=== PATIENT | male | born 1930 | race Caucasian/White ===

== ENCOUNTER 2017-08-24 13:00 | Outpatient (CLI) | payer MEDICARE, BC | END 2017-08-24 13:01 | disposition home or self-care (01) | LOC: BICRAD 13:00 | PROVIDERS: ATTEND Specialist | DX: J32.9 Chronic sinusitis, unspecified (principal); R06.00 Dyspnea, unspecified | CPT/HCPCS: 70220; 71046 ==

== ENCOUNTER → 2017-08-31 | Day surgery (SDC) | payer MEDICARE, BC ==
--- NOTE | 2017-09-05 13:10 | PFT ---
PATIENT HISTORY: HEIGHT: 71.5 IN WEIGHT: 277 SMOKER: NO HOW LON YRS PACKS PER DAY PRODUCTIVE COUGH: NO LUNG DISEASE: PHYSICIAN INTERPRETATION FINAL REPORT: Construction Driver comments patient had a good effort and cooperation FVC 3.63 (86%), FEV1 2.47 (95%), FEV1/FVC 0.68. TLC 10.00 liters (140%), RV 6.61 (228%). FEV1 and FVC fall within normal limits. The ratio is consistent with mild obstructive airflow limitation. There is a significant improvement in the FVC ( 13%, 420 mL), and the FEV1 (15%, 330 mL) following administration of a bronchodilator. Total lung capacity and residual volume are elevated. IMPRESSION: Overall, these pulmonary function studies are consistent with minimal obstructive lung disease with significant improvement following bronchodilator, airtrapping, and hyperinflation. Clinical correlation should be considered. Construction Driver: ANNELIESE Lens Molder: ANNELIESE REYES
== END ==
LOC: BICCT 13:52 → CP 13:53
PROVIDERS: ATTEND Specialist
DX: J32.9 Chronic sinusitis, unspecified (principal); Z87.891 Personal history of nicotine dependence
CPT/HCPCS: 94060; 94727

== ENCOUNTER 2017-09-13 08:57 | Day surgery (SDC) | payer MEDICARE, BC ==
[2017-09-12 15:11] VITALS: BMI 37.4
[2017-09-13 11:01] LABS: Hemoglobin 13.8 g/dL (14.0-18.0)
[2017-09-13] MEDS ORDERED: Oxymetazoline HCl 0.05% ( 15 ML ) ONE ×2 (11:08→11:35)
[2017-09-13 11:23] LABS: Anion Gap 11 mmol/L (10-20); BUN (Urea Nitrogen) 16 mg/dL (8.4-25.7); Calc. Creatinine Clearance 125 mL/min (70-130); Calcium 9.1 mg/dL (7.8-10.44); Carbon Dioxide 28 mmol/L (23-31); Chloride 104 mmol/L (98-107); Estimated GFR-MDRD Greater than 90; Glucose 103 mg/dL (83-110); Potassium 4.2 mmol/L (3.5-5.1); Sodium 139 mmol/L (136-145)
[2017-09-13] MEDS ORDERED: Bacitracin Zinc Ointment 30 gm TUBE ONE (11:35)
[2017-09-13] MEDS ORDERED: Lidocaine 1% w/Epinephrine 1:200K 30 ML VIAL ONE (11:35)
[2017-09-13] MEDS ORDERED: Ondansetron HCl/PF 4 MG/2 ML Vial ONE ×2 (11:37→13:25)
[2017-09-13] MEDS ORDERED: Fentanyl 100 MCG/2 ML VIAL ONE (11:37)
--- NOTE | 2017-09-13 11:41 | EKG ---
Test Reason : PREOP Blood Pressure : / mmHG Vent. Rate : 056 BPM Atrial Rate : 056 BPM P-R Int : 172 ms QRS Dur : 098 ms QT Int : 458 ms P-R-T Axes : 027 032 039 degrees QTc Int : 441 ms Sinus bradycardia with sinus arrhythmia Otherwise normal ECG Confirmed by DR. Jerica GOMEZ ([id number]) on 09/13/2017 11:40:57 AM Referred By: JEANIE Confirmed By:DR. Jerica GOMEZ
[2017-09-13] MEDS ORDERED: PROPOFOL 200 MG/20 ML VIAL ONE (13:25)
[2017-09-13] MEDS ORDERED: Lidocaine 1% PF 5 ML VIAL ONE (13:25)
[2017-09-13] MEDS ORDERED: Succinylcholine Chloride 20 MG/ML 10 ml SYRINGE FS ONE (13:25)
[2017-09-13] MEDS ORDERED: Dexamethasone 20 MG/5 ML VIAL ONE (13:25)
--- NOTE | 2017-09-14 00:04 | OP ---
DATE OF PROCEDURE: 09/13/2017 PREOPERATIVE DIAGNOSES: 1. Chronic rhinosinusitis. 2. Allergic fungal sinusitis. 3. Nasal polyposis. 4. Bilateral inferior turbinate hypertrophy. POSTOPERATIVE DIAGNOSES: 1. Chronic rhinosinusitis. 2. Allergic fungal sinusitis. 3. Nasal polyposis. 4. Bilateral inferior turbinate hypertrophy. PROCEDURES: 1. Bilateral endoscopic sinus surgery, total ethmoidectomies. 2. Bilateral endoscopic sinus surgery, maxillary antrostomies. 3. Bilateral endoscopic sinus surgery, frontal sinusotomy. 4. Bilateral endoscopic sinus surgery, sphenoidotomies. 5. Bilateral inferior turbinate submucosal resection. SURGEON: Naveed Vera MD ESTIMATED BLOOD LOSS: 50 mL. COMPLICATIONS: None. ANESTHESIA: GETA. DESCRIPTION OF PROCEDURE: The patient was taken to the operating room, placed supine on the table. General endotracheal anesthesia was obtained by the Anesthesia staff. Tube was secured in the left l ower lip. The patient was placed in the beach-chair position. Following this, Afrin pledgets were p laced in the nasal cavity and the patient was prepped and draped for standard nasal procedure. Follo wing this, 0-degree scope was advanced in the nasal cavity. There was a leftward septal deviation an d otherwise nasal polyps were prominent on the right side of the nasal cavity, much greater than the left. Injection of 1% lidocaine 1:100,000 epinephrine was made into the middle turbinates, inferior turbinates, and lateral nasal wall bilaterally. Following this, middle turbinates were gently medial ized with a [place] elevator on the right side. Large amounts of scarring and nasal polyps were encoun tered and these were removed using the straight microdebrider. The uncinate process was identified b ilaterally, was anteriorly fractured using the ball-ended probe, and then was removed using the micro debrider. On the right side, the entire maxillary sinus ostia was completely opacified and tissue wa s removed using the microdebrider. Maxillary sinus was then debrided on this right side of copious a juju of allergic fungal debris and nasal polyps using the curved microdebrider and curved suction. On the left side, the natural maxillary ostia was gently widened using the microdebrider. Following this, the ethmoidal bulla was identified and was punctured on its medial and inferior aspect and it was removed. The ground lamella was identified and was then punctured into the posterior ethmoidal c ells working from posterior to anterior, and the ethmoidal cells were opened in a mucosal-sparing riya hnique. The sphenoid sinus ostia was approached through the previous ethmoidectomies where the sphen oid ostia were widened medially and inferiorly using the microdebrider. Following this, a curved [place] rodebrider and the 45-degree scope were used to visualize the frontal recess cells, which were furthe r opened and removed identifying the frontal sinus ostia bilaterally. The frontal sinuses were opene d bilaterally using the microdebrider. Following this, the inferior turbinates were punctured on the anterior and inferior aspects. Submucosal resection was performed of the anterior and inferior port ions of the inferior turbinates bilaterally. The patient tolerated the procedure well.
== END 2017-09-13 15:18 | disposition home or self-care (01) ==
LOC: SDC 08:57
PROVIDERS: ATTEND Otolaryngology Plastic Surgery within the Head & Neck
PROC: 099R8ZZ Drainage of Left Maxillary Sinus, Via Natural or Artificial Opening Endoscopic (ICD-10-PCS; principal; 2017-09-13)
PROC: 099Q8ZZ Drainage of Right Maxillary Sinus, Via Natural or Artificial Opening Endoscopic (ICD-10-PCS; 2017-09-13)
PROC: 09TL8ZZ Resection of Nasal Turbinate, Via Natural or Artificial Opening Endoscopic (ICD-10-PCS; 2017-09-13)
PROC: 09TV8ZZ Resection of Left Ethmoid Sinus, Via Natural or Artificial Opening Endoscopic (ICD-10-PCS; 2017-09-13)
PROC: 09TU8ZZ Resection of Right Ethmoid Sinus, Via Natural or Artificial Opening Endoscopic (ICD-10-PCS; 2017-09-13)
PROC: 09BT8ZZ Excision of Left Frontal Sinus, Via Natural or Artificial Opening Endoscopic (ICD-10-PCS; 2017-09-13)
PROC: 09BS8ZZ Excision of Right Frontal Sinus, Via Natural or Artificial Opening Endoscopic (ICD-10-PCS; 2017-09-13)
PROC: 09CX8ZZ Extirpation of Matter from Left Sphenoid Sinus, Via Natural or Artificial Opening Endoscopic (ICD-10-PCS; 2017-09-13)
PROC: 09CW8ZZ Extirpation of Matter from Right Sphenoid Sinus, Via Natural or Artificial Opening Endoscopic (ICD-10-PCS; 2017-09-13)
DX: J32.9 Chronic sinusitis, unspecified (principal); J33.9 Nasal polyp, unspecified; J34.3 Hypertrophy of nasal turbinates; M10.9 Gout, unspecified; K21.9 Gastro-esophageal reflux disease without esophagitis; I10 Essential (primary) hypertension; E78.00 Pure hypercholesterolemia, unspecified; Z79.82 Long term (current) use of aspirin; Z79.899 Other long term (current) drug therapy; Z88.6 Allergy status to analgesic agent; Z88.5 Allergy status to narcotic agent
CPT/HCPCS: 36415; 80048; 85014; 85018; 93005; 93010; J1100; J2001; J2405; J2704; J3010

== ENCOUNTER 2019-11-08 06:03 | Outpatient (CLI) | payer MEDICARE, BC, OTHER ==
[2019-11-08 12:35] LABS: #Basophils 0.1 thou/uL (0.0-0.2); #Eosinphils 0.1 thou/uL (0.0-0.7); #Lymphocytes 1.5 thou/uL (1.20-3.40); #Monocytes 0.7 thou/uL (0.11-0.59); #Neutrophils 4.1 thou/uL (1.40-6.50); %Basophils 0.9 % (0.0-1.0); %Eosinophils 1.6 % (0.0-10.0); %Lymphocytes 22.6 % (21.0-51.0); %Monocytes 10.8 % (0.0-10.0); %Neutrophils 64.1 % (42.0-75.0); Hemoglobin 14.9 g/dL (14.0-18.0); Mean Corpuscular HGB CONC 33.1 g/dL (32.0-36.0); Mean Corpuscular Hemoglobin 35.7 pg (27.0-31.0); Mean Platelet Volume 7.8 fL (7.4-10.4); Platelet Count 148 thou/uL (130-400); Platelet Morphology Comment Appears Adequate; RBC Distribution Width 12.3 % (11.5-14.5); RBC Morphology Normal; Red Blood Cell (RBC) Count 4.17 mill/uL (4.70-6.10); White Blood Cell (WBC) Count 6.4 thou/uL (4.8-10.8)
[2019-11-08 12:42] LABS: Anion Gap 14 mmol/L (10-20); BUN (Urea Nitrogen) 24 mg/dL (8.4-25.7); Calc. Creatinine Clearance 0 mL/min (70-130); Calcium 8.6 mg/dL (7.8-10.44); Carbon Dioxide 23 mmol/L (23-31); Chloride 105 mmol/L (98-107); Estimated GFR-MDRD 85; Glucose 98 mg/dL (83-110); Potassium 4.4 mmol/L (3.5-5.1); Sodium 138 mmol/L (136-145)
[2019-11-09 13:15] LABS: SARS-CoV-2 MS2 Positive; SARS-CoV-2 N Gene Negative; SARS-CoV-2 S Gene Negative; SARS-CoV-2 orf1ab Negative
== END 2019-11-08 06:04 | disposition home or self-care (01) ==
LOC: LABBT 06:03
PROVIDERS: ATTEND Orthopaedic Surgery
DX: Z01.818 Encounter for other preprocedural examination (principal); Z11.59 Encounter for screening for other viral diseases; G56.03 Carpal tunnel syndrome, bilateral upper limbs
CPT/HCPCS: 80048; 85025; 93005; U0003; 87635; 93010

== ENCOUNTER 2019-11-13 06:07 | Day surgery (SDC) | payer MEDICARE, BC ==
--- NOTE | 2019-11-12 09:30 | HP ---
HISTORY OF PRESENT ILLNESS: The patient is an 89-year-old male, retired orthopedic surgeon, who has a several month history of pain and tingling in both hands left greater than right without specific injury. The symptoms are worse with activities and will wake him at night. He has had no relief with rest, restriction of activities, splinting, and wrist injections. PAST MEDICAL HISTORY: The patient has history of arthritis, hypertension, gout, currently works as a woods. CURRENT MEDICATIONS: Include: 1. Allopurinol. 2. Low-dose aspirin. 3. Calcium. 4. Fish oil. 5. Hydrochlorothiazide. 6. Levothyroxine. 7. Metoprolol. 8. Multivitamins. 9. Niacin. 10. Omeprazole. 11. Simvastatin. 12. Terazosin. ALLERGIES: HE IS ALLERGIC TO IV VANCOMYCIN. FAMILY HISTORY: Otherwise, unremarkable. SOCIAL HISTORY: Otherwise, unremarkable. REVIEW OF SYSTEMS: Otherwise, unremarkable. PHYSICAL EXAMINATION: GENERAL: Reveals elderly healthy male. HEENT: Unremarkable. NECK: Supple. CHEST: Clear. HEART: Regular rate and rhythm. ABDOMEN: Soft, nontender. RECTAL: Deferred. GENITAL: Deferred. EXTREMITIES: Pertinent findings related to both wrists. There is some slight swelling. There is some slight thenar atrophy worse on the left. There is a . There is subjective numbness in median nerve distribution bilaterally, left greater than right. There are palpable distal pulses. There is no definite motor deficit. Electrodiagnostic studies performed by Dr. Nino reveal bilateral carpal tunnel syndrome, severe on the left and moderately severe on the right. IMPRESSION: Bilateral carpal tunnel syndrome, left greater than right. PLAN: Endoscopic possible open right carpal tunnel release. He will probably require similar procedure on the right once he has recovered from the left. The nature of the surgery, length of recovery, and potential complications such as infection, loss of motion, incomplete relief, neurovascular injury, recurrence, scar tissue formation, need for additional treatment, or repeat surgery have been discussed in detail. Job ID: [id number]
[2019-11-12 09:49] VITALS: BMI 34.0
[2019-11-13] MEDS ORDERED: Propofol 500 MG/50 ML VIAL ONE (06:38)
[2019-11-13] MEDS ORDERED: Fentanyl 100 MCG/2 ML VIAL ONE (06:38)
[2019-11-13] MEDS ORDERED: Midazolam HCl 2 mg/2 ml Vial ONE (06:38)
--- NOTE | 2019-11-13 09:18 | OP ---
DATE OF PROCEDURE: 11/13/2019 ANESTHESIA: General. PREOPERATIVE DIAGNOSIS: Bilateral carpal tunnel syndrome. POSTOPERATIVE DIAGNOSIS: Bilateral carpal tunnel syndrome PROCEDURE PERFORMED: Bilateral endoscopic carpal tunnel release. DESCRIPTION OF PROCEDURE: After satisfactory anesthesia was induced in supine position, the patient was prepped and draped in a routine manner. The left wrist was addressed first. The arm was elevated, exsanguinated with an Esmarch bandage, and the tourniquet was inflated to 250 mmHg. A 2 cm transverse incision was made in the proximal wrist flexion crease, carried to the subcutaneous tissues, and bleeding points were controlled with Bovie cautery. Using sharp and blunt dissection, a distally based flap at deep forearm fascia was developed and retracted distally. Palmaris longus tendon was retracted radially. Proximal edge of the deep forearm fascia was split under direct visualization with small scissors to make sure there was no proximal impingement of the median nerve. Synovial elevator was introduced beneath the transverse carpal ligament. The synovium cleaned from the under surface. Carpal tunnel dilators were inserted. The [employer]ee endoscopic carpal tunnel system was introduced beneath the transverse carpal ligament in line with the ring finger. The distal edge of the ligament was easily identified and then divided in a distal to proximal direction by pulling the trigger of the assembly, engaging the knife and withdrawing the scope proximally. This was done in several stages to make sure there was complete division of the transverse carpal ligament, which was documented with video printer. After withdrawing the scope, the carpal tunnel dilator could be inserted into the carpal tunnel with markedly improved passage in subcutaneous position of the instrument. The scope was reintroduced into the carpal tunnel. There was wide separation of the two levels of the transverse carpal ligament. The tourniquet was released after 5 minutes. There was no excessive bleeding when the scope was withdrawn. The wound was thoroughly irrigated and closed in a running subcuticular 3-0 nylon and a sterile dressing applied. Attention was then directed to the right wrist and an identical procedure was performed with a tourniquet time being 6 minutes on the right side. Velcro wrist splints were applied to both wrists. The patient was awakened and taken from the operating room in stable condition. There were no apparent intraoperative complications. The estimated blood loss was negligible. The patient will be discharged home in satisfactory condition, instructed on ice and elevation, and given written wound care instructions. He has tramadol at home for pain. He will be rechecked in my office in 10 to 14 days or sooner, if there are any problems prior to that time. Job ID: [id number]
== END 2019-11-13 10:01 | disposition home or self-care (01) ==
LOC: SDC 06:07
PROVIDERS: ATTEND Orthopaedic Surgery
PROC: 01N54ZZ Release Median Nerve, Percutaneous Endoscopic Approach (ICD-10-PCS; principal; 2019-11-13)
PROC: 01N54ZZ Release Median Nerve, Percutaneous Endoscopic Approach (ICD-10-PCS; 2019-11-13)
DX: G56.03 Carpal tunnel syndrome, bilateral upper limbs (principal); M17.0 Bilateral primary osteoarthritis of knee; I10 Essential (primary) hypertension; M10.9 Gout, unspecified; E78.00 Pure hypercholesterolemia, unspecified; E07.9 Disorder of thyroid, unspecified; K21.9 Gastro-esophageal reflux disease without esophagitis; Z79.82 Long term (current) use of aspirin; Z79.899 Other long term (current) drug therapy; Z88.1 Allergy status to other antibiotic agents
CPT/HCPCS: J0690; J2250; J2704; J3010

== ENCOUNTER 2022-01-26 10:06 | Outpatient (CLI) | payer MEDICARE, BC | END 2022-01-26 10:07 | disposition home or self-care (01) | LOC: BICMRI 10:06 | PROVIDERS: ATTEND Internal Medicine Rheumatology | DX: M53.86 Other specified dorsopathies, lumbar region (principal); M47.816 Spondylosis without myelopathy or radiculopathy, lumbar region; M51.26 Other intervertebral disc displacement, lumbar region | CPT/HCPCS: 72148 ==